=== PATIENT | female | born 1975 | race Caucasian/White ===

== ENCOUNTER 2017-05-06 08:12 | Day surgery (SDC) | payer MEDICAID ==
[~2017-05-06] VITALS: Ht 160 cm; Wt 49.0 kg
--- NOTE | ~2017-05-06 | OP ---
PATIENT NAME: STEPHANIE SOSA MEDICAL RECORD: [id number] :77 LOCATION:D.OPS ADMISSION DATE: SURGEON: CHARLES FERNANDES MD DATE OF OPERATION: 05/06/2017 PREOPERATIVE DIAGNOSES: 1. Intractably symptomatic internal and external hemorrhoids. 2. Internal hemorrhoidal bleeding. 3. Circumferential fourth-degree internal hemorrhoids. POSTOPERATIVE DIAGNOSES: 1. Intractably symptomatic internal and external hemorrhoids. 2. Internal hemorrhoidal bleeding. 3. Circumferential fourth-degree internal hemorrhoids. PROCEDURE: Total (3 column) hemorrhoidectomy. SURGEON: Charles Fernandes MD POSTAL TRANSPORTATION CLERK: None. BLOOD LOSS. 200 cc. ANESTHESIA: General. COMPLICATIONS: None. The risks, possible complications, and alternatives to the procedure were explained to the patient. She elects to proceed. The discussion was specifically included, but was not limited to, bleeding, requiring an emergency reoperation; infection; as well as the need for additional hemorrhoid procedure or procedures. OPERATIVE COURSE: The patient was conveyed to the operating room electively on 05/06/2017. General anesthesia was induced by the anesthesia staff. The patient was placed in the lithotomy position. The perineum and anus were sterilely prepped and draped. Starting at the 5 o'clock position, U-shaped anal retractors were placed. There was no fissure and no evidence of fistula. I placed a iorayt-bv-hroei suture at the apex of an internal hemorrhoidal bundle at the 5 o'clock position. Utilizing the Harmonic scalpel, I incised the anoderm. I swept down the anal musculature. I then excised the internal and external hemorrhoidal column with the Harmonic scalpel. Meticulous hemostasis was achieved with electrocautery. Submucosal flaps were created sharply. Subcutaneous flaps were created sharply. I used the same 3-0 Vicryl suture in a running-locking fashion for the anal mucosa and then in a running fashion out on to the anoderm. Several places along the suture line were reinforced with horizontal mattress 3-0 Vicryl sutures. Attention was then turned to the 7 o'clock position. A similar procedure was carried out. The U-shaped anal retractor was placed. A tggjoc-rt-ainuj suture was placed at the apex in the internal hemorrhoidal column. I incised the anoderm with the Harmonic scalpel. I swept down the anal musculature to protect OPERATIVE REPORT [id number] STEPHANIE SOSA erick. I then excised the internal and external hemorrhoidal bundle. Meticulous hemostasis was achieved with the electrocautery. Submucosal flaps were created sharply. Subdermal flaps were created sharply. I then used the same 3-0 Vicryl suture in a running locking fashion for the anal mucosa and then in a running fashion out on to the anoderm. Then, at 10 o'clock or 11 o'clock position, a similar procedure was carried out. An U-shaped anal retractor was placed. A jjjkwu-sm-zvuvv 3-0 Vicryl suture was utilized to ligate the apex of an internal hemorrhoidal column. I incised the anoderm with the Harmonic scalpel. I then swept down the anal musculature. The internal and external anal sphincters were swept down for protection. I then excised the internal and external hemorrhoidal bundle with the Harmonic scalpel. Meticulous hemostasis was achieved with the electrocautery. Submucosal flaps were created sharply. Subcutaneous flaps were created sharply. The same 3-0 Vicryl suture was used in a running locking fashion for the anal mucosa and then in a running fashion out on to the anoderm. At the 7 o'clock position and the 11 o'clock position, I reinforced the suture line with few horizontal mattress 3-0 Vicryl sutures. There was no further bleeding. I checked the posterior aspect of the vagina. There was no entry into the posterior aspect of the vagina. No evidence of a rectovaginal fistula. Gelfoam was packed within the anus and the lower rectum. A combination of steroid preparation and Marcaine was used to infiltrate the perianal tissues. A topical anesthetic was used on the external hemorrhoids. The patient was then extubated and conveyed to postanesthesia care unit, where she was in stable condition. She will be dismissed home on Colace and Valium as well as hydrocodone. I will see her in the office in 2-3 weeks. TRANSINT:[id number] Voice Confirmation ID: [id number] DOCUMENT ID: [id number] CHARLES FERNANDES MD CC: [id number] DICTATION DATE: 05/06/171807 CAN FILLER: 05/06/171957 [facility] 05/06/17 [id number] [place] [address]
[~2017-05-06 08:12] MED LIST: BENTYL 20 MG TA20 MG PO; CYPROHEPTADINE H4 MG PO
[2017-05-06 08:33] LABS: HEMATOCRIT 38.7 % (36.0-48.0); HEMOGLOBIN 13.6 g/dL (12-16); MCH 30.8 pg (26.0-34.0); MCHC 35.1 g/dL (31.0-37.0); MCV 87.8 fL (80.0-100.0); MEAN PLATELET VOLUME 11.7 fL (7.4-10.4); RBC 4.41 10x6/uL (4.00-5.40); RDW 12.8 % (11.5-14.5); WBC 5.8 10x3/uL (4.8-10.8)
[2017-05-06 08:48] VITALS: BP 99/57; Ht 160 cm; Wt 49.0 kg
--- NOTE | 2017-05-06 16:25 | NUR ---
1620 patient arrived very sleepy received zofran prior to room, resp nonlabored. cool washcloth over face. pain a 3 has gel foam amd mesh panties.
--- NOTE | 2017-05-06 16:48 | NUR ---
7676 WAKING UP NAUSEA SOME BETTER TAKING IN ICE CHIPS FULL LIQUIDS SERVED.
--- NOTE | 2017-05-06 17:14 | NUR ---
1714 STILL SOME NAUSEA ORDERS RECEIVED.
--- NOTE | 2017-05-06 17:33 | NUR ---
1718 MEDICATED WITH PHENERGAN IM.
--- NOTE | 2017-05-06 17:57 | NUR ---
9415 REPORTED PATIENT REQUESTING SOME NAUSEA MEDS. TALKED WITH DENA WHITNEY AND MAY CALL IN 15 PHENERGAN EVERY 6 HOURS NEEDED FOR NAUSEA, TALKED WITH DARRIUS PHARMACIST AT [facility] [address] [phone].
--- NOTE | 2017-05-06 18:57 | NUR ---
1830 UP AND MOVED AROUND AND VOIDED. IV DCD CATHETER INTACT. WENT OVER DISCHARGE INSTRUCTIONS PPH INSTRUCTIONS 3 SCRIPTS AND TOLD TO MASH PROCESSING OPERATOR PHENERGAN ALSO FOR NAUSEA. VERBALLY UNDERSTANDS.
--- NOTE | 2017-05-06 18:58 | NUR ---
1840 TO HOME VIA W/C WITH SPOUSE.
--- NOTE | 2017-05-06 18:59 | NUR ---
183 PATIENT STATES NAUSEA SOME BETTER AFTER IM SHOT AND TOOK IN SOME LIQUIDS.
== END 2017-05-06 18:40 | disposition home or self-care (01) ==
LOC: D.OPS 08:12 → D.PAN 11:15 → D.OPS 18:40
PROVIDERS: Anesthesiology
DX: K64.3 Fourth degree hemorrhoids (principal); K64.4 Residual hemorrhoidal skin tags; Z01.812 Encounter for preprocedural laboratory examination

== ENCOUNTER 2017-05-17 09:03 | Emergency (ER) | payer MEDICAID ==
[2017-05-06 08:48] VITALS: BMI 19.1
== END 2017-05-17 10:07 | disposition home or self-care (01) ==
LOC: D.ER 09:03
DX: R11.10 Vomiting, unspecified (principal); K62.89 Other specified diseases of anus and rectum

== ENCOUNTER 2017-06-20 18:42 | Emergency (ER) | payer MEDICAID ==
[2017-05-06 08:48] VITALS: BMI 19.1
== END 2017-06-20 19:59 | disposition home or self-care (01) ==
LOC: D.ER 18:42
DX: F41.9 Anxiety disorder, unspecified (principal); F17.200 Nicotine dependence, unspecified, uncomplicated

== ENCOUNTER 2017-10-16 00:38 | Emergency (ER) | payer MEDICAID ==
[2017-05-06 08:48] VITALS: BMI 19.1
[2017-10-16 01:12] LABS: APPEARANCE CLEAR (CLEAR); BACTERIA NONE SEEN /hpf (NONE SEEN); BILIRUBIN NEGATIVE (NEGATIVE); COLOR YELLOW (YELLOW); EPITHELIAL CELLS RARE /hpf (0-5); GLUCOSE NEGATIVE (NEGATIVE); KETONE LARGE mg/dL (NEGATIVE); NITRITE NEGATIVE (NEGATIVE); PROTEIN TRACE mg/dL (NEGATIVE); RED CELLS - URINE 0-5 /hpf (0-5); UROBILINOGEN NORMAL (NORMAL); WHITE CELLS - URINE NSEEN /hpf (0-5)
[2017-10-16 01:34] LABS: BASOPHILS 0.8 % (0-2); EOSINOPHILS 2.9 % (0-7); HEMATOCRIT 39.8 % (36.0-48.0); HEMOGLOBIN 14.5 g/dL (12-16); IMMATURE GRANULOCYTES 0.2 % (0-5); LYMPHOCYTES 28.7 % (15-50); MCH 32.2 pg (26.0-34.0); MCHC 36.4 g/dL (31.0-37.0); MCV 88.4 fL (80.0-100.0); MEAN PLATELET VOLUME 11.7 fL (7.4-10.4); MONOCYTES 4.9 % (2-11); NEUTROPHILS 62.5 % (40-80); PLATELET COUNT 216 10x3/uL (130-400); RDW 12.6 % (11.5-14.5); WBC 8.9 10x3/uL (4.8-10.8)
[2017-10-16 01:48] LABS: ALBUMIN 4.1 g/dL (3.4-5.0); ANION GAP 17.7 mmol/L (8-16); BILIRUBIN - TOTAL 0.79 mg/dL (0.2-1.3); CALCIUM 9.5 mg/dL (8.5-10.1); CARBON DIOXIDE 23.1 mmol/L (21.0-32.0); CREATININE - SERUM 0.9 mg/dL (0.6-1.3); POTASSIUM - SERUM 3.8 mmol/L (3.5-5.1); PROTEIN - SERUM 7.9 g/dL (6.4-8.2)
== END 2017-10-16 02:35 | disposition home or self-care (01) ==
LOC: D.ER 00:38
PROVIDERS: Family Medicine
DX: R10.9 Unspecified abdominal pain (principal); R11.10 Vomiting, unspecified; F17.200 Nicotine dependence, unspecified, uncomplicated

== ENCOUNTER 2017-10-17 20:53 | Emergency (ER) | payer MEDICAID ==
[2017-05-06 08:48] VITALS: BMI 19.1
== END 2017-10-17 23:32 | disposition home or self-care (01) ==
LOC: D.ER 20:53
DX: F41.9 Anxiety disorder, unspecified (principal)